=== PATIENT | female | born 1970 | race Caucasian/White ===

== ENCOUNTER 2024-08-25 11:26 | Day surgery (SDC) | payer OTHER ==
[~2024-08-25] VITALS: Wt 56.0 kg
[2024-08-25] MEDS ORDERED: Midazolam HCl 1MG / ML 2ML Vial ONE (11:38)
[2024-08-25] MEDS ORDERED: propofoL 20 ML IV ONE (11:38)
[2024-08-25] MEDS ORDERED: Rocuronium Bromide 10 MG/ML 5ML Injection IV ONE ×2 (11:38→11:40)
[2024-08-25] MEDS ORDERED: TRAM50 PO (12:24)
[2024-08-25] MEDS ORDERED: CeFAZolin Sodium 2,000 MG VIAL ONE (12:28)
[2024-08-25] MEDS ORDERED: Lactated Ringer's 1,000 ML IV ONE ×2 (12:28→12:32)
[2024-08-25] MEDS ORDERED: FentaNYL Citrate 50 MCG/ML 2 ML Injection ONE (12:34)
[2024-08-25] MEDS ORDERED: Ketorolac Tromethamine 30mg Vial ONE (12:48)
[2024-08-25] MEDS ORDERED: Ondansetron HCl 2 MG / ML 2ML Vial ONE (12:48)
[2024-08-25] MEDS ORDERED: Dexamethasone Sod Phos 10 MG/ML 1ML VIAL ONE (12:48)
[2024-08-25] MEDS ORDERED: Bupivacaine 0.5% HCl 5 MG/ML 30MLVIAL XX ONE (13:04)
[2024-08-25] MEDS ORDERED: Sugammadex Sodium 200 MG/2ML SDV (100 MG/ML) ONE (13:25)
--- NOTE | 2024-08-25 13:57 | NUR ---
08/25/24 [id number] JOURDAN DSOUZA DENIES PAIN, NAUSEA. STATES SHE IS WARM. PT SLEEPY- FALLS BACK TO SLEEP QUICKLY AT THIS TIME BUT CAN ROUSE HER EASILY.
[2024-08-25] MEDS ORDERED: HYDROcodone 5-APAP 325 TAB ONE (14:36)
--- NOTE | 2024-08-25 15:00 | NUR ---
08/25/24 1500 JOURDAN DSOUZA WENT OVER DC INSTRUCTIONS WITH PT AND . ANSWERED QUESTIONS. PT EATING AND DRINKING WO DIFF. DENIES NAUSEA. PAIN CURRENTLY 4-09/27. NORCO 5/325MG WAS GIVEN 15 MIN AGO.
== END 2024-08-25 15:25 | disposition home or self-care (01) ==
LOC: ORSCSDS 11:26
PROVIDERS: Orthopaedic Surgery
PROC: 0QSG04Z Reposition Right Tibia with Internal Fixation Device, Open Approach (ICD-10-PCS; principal; 2024-08-25 12:45)
DX: S82.51XA Displaced fracture of medial malleolus of right tibia, initial encounter for closed fracture (principal); W18.09XA Striking against other object with subsequent fall, initial encounter
CPT/HCPCS: A9270; C1713; C1769; J0690; J1100; J1885; J2250; J2405; J2704; J3010; J7120

== ENCOUNTER → 2025-03-20 | Outpatient (CLI) | payer OTHER ==
[~2025-03-20] MED LIST: TRAM50 PO
== END | disposition home or self-care (01) ==
LOC: LAB SHORT 14:56 → LAB 14:56
PROVIDERS: Obstetrics & Gynecology
DX: Z01.419 Encounter for gynecological examination (general) (routine) without abnormal findings (principal)
CPT/HCPCS: 87624; G0145